=== PATIENT | male | born 1995 | race Two or more races ===

== ENCOUNTER 2021-07-19 12:16 | Inpatient (IN) | payer MEDICAID, OTHER ==
[~2021-07-19] VITALS: Ht 152.4 cm; Wt 60.4 kg
[2021-07-19] MEDS ORDERED: ACETAMINOPHEN 500 MG TAB PO ONE (12:45)
[2021-07-19] MEDS ORDERED: SODIUM CHLORIDE 0.9% 1,000 ML IV ONE (13:00)
[2021-07-19] MEDS ORDERED: VANCOMYCIN 1GM/250ML 250 ML IV ONE ×2 (13:00)
[2021-07-19] MEDS ORDERED: CEFEPIME 2 GM in SODIUM CHL 0.9% 50 ML IV ONE (13:00)
[2021-07-19] MEDS ORDERED: metroNIDAZOLE 500MG/100ML 100 ML IV ONE (13:30)
[2021-07-19 13:43] LABS: Basophils # (auto) 0.1 10 ^3/uL (0-0.2); Neutrophils # (auto) 12.1 10 ^3/uL (1.6-8.6); White Blood Cell 14.5 10^3/uL (4.4-10.8)
[2021-07-19 13:44] LABS: Basophils % (auto) 0.4 % (0.0-2.0); Eosinophils # (auto) 0 10 ^3/uL (0-0.8); Eosinophils % (auto) 0.3 % (0.0-7.0); Hematocrit 27.5 % (41.0-53.0); Hemoglobin 8.9 g/dL (13.5-17.5); Lymphocytes # (auto) 1.6 10 ^3/uL (0.4-5.4); Mean Corpuscular Hemoglobin 24.9 pg (28.0-32.0); Mean Corpuscular Hgb Conc. 32.4 g/dL (32.0-36.0); Mean Corpuscular Volume 76.7 fL (80.0-100.0); Monocytes # (auto) 0.7 10 ^3/uL (0-1.3); Monocytes % (auto) 5.1 % (0.0-12.0); Neutrophils % (auto) 83.2 % (37.0-80.0); Nucleated Red Blood Cells % 0.1 %; Red Blood Cells 3.59 10^6/uL (4.5-5.90); Red Cell Distribution Width 16.2 % (11.8-14.3)
[2021-07-19 14:00] LABS: BUN/Creatinine Ratio 19.2; Calcium 8.5 mg/dL (8.5-10.1)
[2021-07-19 14:03] LABS: Lactic Acid w/Reflex 2.1 mmol/L (0.4-2.0)
[2021-07-19] MEDS ORDERED: SODIUM CHLORIDE 0.9% 2,000 ML IV ONE (15:00)
[2021-07-19] MEDS: SODIUM CHLORIDE 0.9% 1,000 ML IV ONE ×2 (17:59→18:14)
[2021-07-19] MEDS ORDERED: HYDROcodone-ACET 5/325MG TAB PO PRN (18:30)
[2021-07-19] MEDS ORDERED: ONDANSETRON HCL 4 MG/2 ML VIAL IV PRN (18:30)
[2021-07-19] MEDS ORDERED: ACETAMINOPHEN 325 MG TAB PO PRN (18:30)
[2021-07-19] MEDS ORDERED: NITROGLYCERIN 0.4 MG SL TAB SL PRN (18:30)
[2021-07-19] MEDS ORDERED: MORPHINE SULFATE 4 MG/ML SYR/VIAL IV PRN (18:30)
[2021-07-19] MEDS ORDERED: VANCOMYCIN PER PHARMACY 0 MG IV SCH (18:30)
[2021-07-19] MEDS ORDERED: MORPHINE SULFATE INJECTION 2 MG/ML SYRG IV PRN (18:30)
[2021-07-19] MEDS: SODIUM CHLORIDE 0.9% 1,000 ML IV SCH (18:46)
[2021-07-19] MEDS ORDERED: CALCIUM CARB 500 MG CHEW TAB PO PRN (21:45)
[2021-07-19 22:00] VITALS: BP 112/73
[2021-07-19] MEDS: FAMOTIDINE 20 MG TAB PO SCH (22:54)
[2021-07-19 23:00] VITALS: BP 112/73
[2021-07-20] MEDS: PIPERACILLIN-TAZOB 3.375GM 100 ML IV SCH ×5 (00:15→23:45)
[2021-07-20] MEDS: SODIUM CHLORIDE 0.9% 1,000 ML IV SCH ×4 (01:10→21:46)
[2021-07-20] MEDS ORDERED: VANCOMYCIN 1GM/250ML 250 ML IV SCH (02:00)
[2021-07-20 05:00] VITALS: BP 100/47
[2021-07-20 06:15] LABS: Eosinophils # (auto) 0.1 10 ^3/uL (0-0.8); Monocytes # (auto) 0.9 10 ^3/uL (0-1.3); Nucleated Red Blood Cells % 0.1 %
[2021-07-20 06:18] LABS: Basophils # (auto) 0 10 ^3/uL (0-0.2); Basophils % (auto) 0.4 % (0.0-2.0); Eosinophils % (auto) 1.1 % (0.0-7.0); Hemoglobin 7.8 g/dL (13.5-17.5); Lymphocytes # (auto) 1.8 10 ^3/uL (0.4-5.4); Lymphocytes % (auto) 18.1 % (10.0-50.0); Mean Corpuscular Hemoglobin 25.1 pg (28.0-32.0); Mean Corpuscular Hgb Conc. 32.6 g/dL (32.0-36.0); Mean Corpuscular Volume 76.8 fL (80.0-100.0); Monocytes % (auto) 9.2 % (0.0-12.0); Neutrophils # (auto) 7.2 10 ^3/uL (1.6-8.6); Neutrophils % (auto) 71.2 % (37.0-80.0); Red Blood Cells 3.12 10^6/uL (4.5-5.90); Red Cell Distribution Width 16.1 % (11.8-14.3); White Blood Cell 10.1 10^3/uL (4.4-10.8)
[2021-07-20 06:31] LABS: Potassium 3.4 mmol/L (3.5-5.1)
[2021-07-20 06:36] LABS: Albumin 1.8 g/dL (3.4-5.0); BUN/Creatinine Ratio 8.6; Bilirubin, Total 0.4 mg/dL (0.2-1.0); Calcium 7.9 mg/dL (8.5-10.1); Total Protein 6.2 g/dL (6.4-8.2)
[2021-07-20 09:02] VITALS: BP 116/47
[2021-07-20] MEDS: ENOXAPARIN SOD 40 MG/0.4 ML SYRINGE SC SCH (09:45)
[2021-07-20] MEDS: FAMOTIDINE 20 MG TAB PO SCH ×2 (09:45→21:40)
[2021-07-20] MEDS ORDERED: VANCOMYCIN PER PHARMACY 0 MG IV SCH (12:00)
[2021-07-20 12:47] VITALS: BP 98/53
[2021-07-20] MEDS ORDERED: IOHEXOL 300 MG/ML 100ML BOTTLE IJ ONE (14:37)
[2021-07-20] MEDS: VANCOMYCIN 1GM/250ML 250 ML IV SCH (15:29)
[2021-07-20 17:00] VITALS: BP 94/60
[2021-07-20 22:00] VITALS: BP 93/55
[2021-07-21] MEDS: VANCOMYCIN 1GM/250ML 250 ML IV SCH ×3 (02:06→22:32)
[2021-07-21 05:00] VITALS: BP 101/59
[2021-07-21] MEDS: PIPERACILLIN-TAZOB 3.375GM 100 ML IV SCH ×3 (06:25→18:33)
[2021-07-21] MEDS: SODIUM CHLORIDE 0.9% 1,000 ML IV SCH ×4 (06:30→23:50)
[2021-07-21 08:51] VITALS: BP 103/50
[2021-07-21] MEDS: ENOXAPARIN SOD 40 MG/0.4 ML SYRINGE SC SCH (09:11)
[2021-07-21] MEDS: FAMOTIDINE 20 MG TAB PO SCH ×2 (09:11→22:32)
[2021-07-21 12:24] VITALS: BP 103/59
[2021-07-21 16:34] VITALS: BP 115/62
[2021-07-21] MEDS: Juven Fruit Punch Powder PACKET 28.8gm PO SCH (18:32)
[2021-07-21 22:00] VITALS: BP 107/65
[2021-07-22] MEDS: PIPERACILLIN-TAZOB 3.375GM 100 ML IV SCH ×4 (01:13→18:41)
[2021-07-22 05:00] VITALS: BP 101/53
[2021-07-22 06:23] LABS: Basophils # (auto) 0.1 10 ^3/uL (0-0.2); Basophils % (auto) 0.7 % (0.0-2.0); Eosinophils # (auto) 0.2 10 ^3/uL (0-0.8); Eosinophils % (auto) 2.7 % (0.0-7.0); Hemoglobin 7.5 g/dL (13.5-17.5); Monocytes # (auto) 0.8 10 ^3/uL (0-1.3); Nucleated Red Blood Cells % 0.1 %
[2021-07-22 06:25] LABS: Hematocrit 22.4 % (41.0-53.0); Lymphocytes # (auto) 1.7 10 ^3/uL (0.4-5.4); Lymphocytes % (auto) 23.4 % (10.0-50.0); Mean Corpuscular Hemoglobin 25.8 pg (28.0-32.0); Mean Corpuscular Hgb Conc. 33.5 g/dL (32.0-36.0); Mean Corpuscular Volume 76.9 fL (80.0-100.0); Monocytes % (auto) 11.4 % (0.0-12.0); Neutrophils # (auto) 4.6 10 ^3/uL (1.6-8.6); Neutrophils % (auto) 61.8 % (37.0-80.0); Red Blood Cells 2.92 10^6/uL (4.5-5.90); Red Cell Distribution Width 16.5 % (11.8-14.3); White Blood Cell 7.4 10^3/uL (4.4-10.8)
[2021-07-22] MEDS: SODIUM CHLORIDE 0.9% 1,000 ML IV SCH ×3 (06:30→21:37)
[2021-07-22 06:42] LABS: Calcium 8.2 mg/dL (8.5-10.1); Potassium 3.8 mmol/L (3.5-5.1)
[2021-07-22 06:46] LABS: Magnesium 2.4 mg/dL (1.6-2.6)
[2021-07-22 08:00] VITALS: BP 113/63
[2021-07-22] MEDS: VANCOMYCIN 1GM/250ML 250 ML IV SCH (08:00)
[2021-07-22] MEDS: FAMOTIDINE 20 MG TAB PO SCH ×2 (09:07→21:38)
[2021-07-22] MEDS: Juven Fruit Punch Powder PACKET 28.8gm PO SCH ×2 (09:08→18:41)
[2021-07-22] MEDS: ENOXAPARIN SOD 40 MG/0.4 ML SYRINGE SC SCH (09:08)
[2021-07-22 12:00] VITALS: BP 104/60
[2021-07-22 16:00] VITALS: BP_SYST 108; BP_SYST 119; BP_DIAS 60; BP_DIAS 68
[2021-07-22] MEDS ORDERED: VANCOMYCIN 1GM/250ML 250 ML IV ONE (20:00)
[2021-07-22 22:00] VITALS: BP 110/58
[2021-07-23] MEDS: PIPERACILLIN-TAZOB 3.375GM 100 ML IV SCH ×4 (01:11→18:38)
[2021-07-23] MEDS: SODIUM CHLORIDE 0.9% 1,000 ML IV SCH ×4 (02:30→22:30)
[2021-07-23 05:00] VITALS: BP 127/60
[2021-07-23 08:47] VITALS: BP_SYST 127; BP_SYST 93; BP_DIAS 51; BP_DIAS 60
[2021-07-23] MEDS: FAMOTIDINE 20 MG TAB PO SCH ×2 (09:18→21:18)
[2021-07-23] MEDS: Juven Fruit Punch Powder PACKET 28.8gm PO SCH ×2 (09:18→18:37)
[2021-07-23] MEDS: ENOXAPARIN SOD 40 MG/0.4 ML SYRINGE SC SCH (09:18)
[2021-07-23 13:00] VITALS: BP 93/52
[2021-07-23 17:00] VITALS: BP 104/62
[2021-07-23 22:00] VITALS: BP 120/65
[2021-07-24] MEDS: PIPERACILLIN-TAZOB 3.375GM 100 ML IV SCH ×3 (00:30→12:53)
[2021-07-24 05:00] VITALS: BP 102/59
[2021-07-24] MEDS: SODIUM CHLORIDE 0.9% 1,000 ML IV SCH ×2 (05:18→11:50)
[2021-07-24 08:10] VITALS: BP 101/60
[2021-07-24] MEDS: Juven Fruit Punch Powder PACKET 28.8gm PO SCH (08:52)
[2021-07-24] MEDS: FAMOTIDINE 20 MG TAB PO SCH (10:17)
[2021-07-24] MEDS: ENOXAPARIN SOD 40 MG/0.4 ML SYRINGE SC SCH (10:17)
[2021-07-24 12:00] VITALS: BP 111/60
[2021-07-24 17:10] VITALS: BP 99/61
[2021-07-24] MEDS ORDERED: DAKINS HALF STR 0.25% (NaHypochlorite) 473 ML TOPICAL SOL TOP ONE (17:15)
== END 2021-07-24 17:30 | disposition left against medical advice (07) | DRG 720 ==
LOC: ER 12:16 → TELE 18:28 → TELE-EAST 20:25
PROVIDERS: ADMIT Internal Medicine; ATTEND Internal Medicine
PROC: 05HC33Z Insertion of Infusion Device into Left Basilic Vein, Percutaneous Approach (ICD-10-PCS; principal; 2021-07-23)
PROC: B54NZZA Ultrasonography of Left Upper Extremity Veins, Guidance (ICD-10-PCS; 2021-07-23)
DX: A41.50 Gram-negative sepsis, unspecified (principal); L89.154 Pressure ulcer of sacral region, stage 4; E44.1 Mild protein-calorie malnutrition; G82.20 Paraplegia, unspecified; L89.329 Pressure ulcer of left buttock, unspecified stage; Z20.822 Contact with and (suspected) exposure to COVID-19; Z53.29 Procedure and treatment not carried out because of patient's decision for other reasons; Z82.62 Family history of osteoporosis; Z68.35 Body mass index [BMI] 35.0-35.9, adult
CPT/HCPCS: 36415; 74177; 80048; 80053; 80202; 82565; 83605; 83735; 85025; 87040; 87076; 96365; 96366; 96367; 96375; G0378; J2405; J2543; J3490

== ENCOUNTER 2021-10-04 | Inpatient (IN) | payer MEDICAID ==
[2021-10-04] VITALS (15 sets, daily range): BP systolic 100–120; BP diastolic 31–74
[~2021-10-04] VITALS: Ht 152.4 cm; Wt 66.5 kg
[2021-10-04] MEDS ORDERED: SODIUM CHLORIDE 0.9% 500 ML IV STA (00:29)
[2021-10-04] MEDS ORDERED: SODIUM CHLORIDE 0.9% 500 ML IV ONE (00:30)
[2021-10-04 01:21] LABS: Basophils # (auto) 0.1 10 ^3/uL (0-0.2); Eosinophils # (auto) 0 10 ^3/uL (0-0.8); Eosinophils % (auto) 0.3 % (0.0-7.0); Lymphocytes # (auto) 2.7 10 ^3/uL (0.4-5.4); Neutrophils # (auto) 9.3 10 ^3/uL (1.6-8.6)
[2021-10-04 01:23] LABS: Basophils % (auto) 0.8 % (0.0-2.0); Hematocrit 20.9 % (41.0-53.0); Lymphocytes % (auto) 20.2 % (10.0-50.0); Mean Corpuscular Hgb Conc. 32.1 g/dL (32.0-36.0); Mean Corpuscular Volume 74.9 fL (80.0-100.0); Monocytes # (auto) 1.1 10 ^3/uL (0-1.3); Monocytes % (auto) 8.6 % (0.0-12.0); Neutrophils % (auto) 70.1 % (37.0-80.0); Nucleated Red Blood Cells % 0.1 %; Red Blood Cells 2.79 10^6/uL (4.5-5.90); Red Cell Distribution Width 17.5 % (11.8-14.3); White Blood Cell 13.3 10^3/uL (4.4-10.8)
[2021-10-04 02:12] LABS: Hemoglobin 6.7 g/dL (13.5-17.5)
[2021-10-04 02:48] LABS: Albumin 2.1 g/dL (3.4-5.0); BUN/Creatinine Ratio 10.4; Calcium 8.1 mg/dL (8.5-10.1)
[2021-10-04 02:51] LABS: Bilirubin, Total 0.5 mg/dL (0.2-1.0); Total Protein 6.9 g/dL (6.4-8.2)
[2021-10-04 03:30] LABS: Lactic Acid w/Reflex 2.3 mmol/L (0.4-2.0)
[2021-10-04] MEDS ORDERED: DOCUSATE SOD 100 MG CAP PO PRN (06:30)
[2021-10-04] MEDS ORDERED: HYDROcodone-ACET 5/325MG TAB PO PRN (06:30)
[2021-10-04] MEDS ORDERED: ONDANSETRON HCL 4 MG/2 ML VIAL IV PRN (06:30)
[2021-10-04] MEDS ORDERED: SODIUM CHLORIDE 0.9% 1,000 ML IV SCH ×2 (06:30→07:15)
[2021-10-04] MEDS ORDERED: NITROGLYCERIN 0.4 MG SL TAB SL PRN (07:15)
[2021-10-04] MEDS ORDERED: MORPHINE SULFATE INJ 2 MG/ml SYRG IV PRN ×2 (07:15)
[2021-10-04] MEDS ORDERED: ACETAMINOPHEN 325 MG TAB PO ONE (08:00)
[2021-10-04] MEDS: ENOXAPARIN SOD 40 MG/0.4 ML SYRINGE SC SCH (08:26)
[2021-10-04] MEDS: POTASSIUM CHL 20MEQ/100ML 100 ML IV SCH ×2 (08:30→12:16)
[2021-10-04] MEDS: CLINDAMYCIN 900MG IV 50 ML IV SCH ×2 (12:16→21:32)
[2021-10-04] MEDS: levoFLOXacin 500MG 100 ML IV SCH (12:17)
[2021-10-04 13:03] LABS: Eosinophils # (auto) 0.1 10 ^3/uL (0-0.8); Mean Corpuscular Hgb Conc. 33.1 g/dL (32.0-36.0); Monocytes # (auto) 0.8 10 ^3/uL (0-1.3); Monocytes % (auto) 7.4 % (0.0-12.0)
[2021-10-04 13:05] LABS: Basophils # (auto) 0.1 10 ^3/uL (0-0.2); Basophils % (auto) 0.7 % (0.0-2.0); Eosinophils % (auto) 1.2 % (0.0-7.0); Hematocrit 27.2 % (41.0-53.0); Lymphocytes # (auto) 2.1 10 ^3/uL (0.4-5.4); Lymphocytes % (auto) 20.2 % (10.0-50.0); Mean Corpuscular Volume 78.6 fL (80.0-100.0); Neutrophils # (auto) 7.5 10 ^3/uL (1.6-8.6); Neutrophils % (auto) 70.5 % (37.0-80.0); Nucleated Red Blood Cells % 0.5 %; Red Blood Cells 3.46 10^6/uL (4.5-5.90); Red Cell Distribution Width 17.1 % (11.8-14.3); White Blood Cell 10.6 10^3/uL (4.4-10.8)
[2021-10-04] MEDS ORDERED: POTASSIUM EFFERVESENT TAB 25 MEQ PO ONE (13:15)
[2021-10-04 13:26] LABS: Albumin 1.9 g/dL (3.4-5.0); BUN/Creatinine Ratio 10.9; Calcium 7.8 mg/dL (8.5-10.1)
[2021-10-04 13:32] LABS: Bilirubin, Total 0.7 mg/dL (0.2-1.0); Total Protein 6.4 g/dL (6.4-8.2)
[2021-10-04 13:55] LABS: Urine Bacteria MOD /hpf (None Seen); Urine Blood Negative /uL (Negative); Urine Mucus FEW (None Seen); Urine Specific Gravity 1.013 (1.001-1.035); Urine WBC 5 /hpf (0 - 3)
[2021-10-04] MEDS: ACETAMINOPHEN 325 MG TAB PO PRN (21:56)
[2021-10-05 05:00] VITALS: BP 112/73
[2021-10-05] MEDS: CLINDAMYCIN 900MG IV 50 ML IV SCH (05:42)
[2021-10-05 07:03] LABS: Neutrophils # (auto) 6.5 10 ^3/uL (1.6-8.6)
[2021-10-05 07:05] LABS: Basophils # (auto) 0 10 ^3/uL (0-0.2); Basophils % (auto) 0.5 % (0.0-2.0); Eosinophils # (auto) 0.2 10 ^3/uL (0-0.8); Eosinophils % (auto) 1.7 % (0.0-7.0); Hematocrit 28.4 % (41.0-53.0); Hemoglobin 9.3 g/dL (13.5-17.5); Lymphocytes % (auto) 21.4 % (10.0-50.0); Mean Corpuscular Hemoglobin 25.7 pg (28.0-32.0); Mean Corpuscular Hgb Conc. 32.9 g/dL (32.0-36.0); Mean Corpuscular Volume 78.2 fL (80.0-100.0); Monocytes # (auto) 0.7 10 ^3/uL (0-1.3); Monocytes % (auto) 7.9 % (0.0-12.0); Neutrophils % (auto) 68.5 % (37.0-80.0); Nucleated Red Blood Cells % 0.2 %; Red Blood Cells 3.63 10^6/uL (4.5-5.90); White Blood Cell 9.4 10^3/uL (4.4-10.8)
[2021-10-05 07:40] LABS: Albumin 1.8 g/dL (3.4-5.0); Calcium 8.1 mg/dL (8.5-10.1); Potassium 3.9 mmol/L (3.5-5.1)
[2021-10-05 07:42] LABS: BUN/Creatinine Ratio 9.4
[2021-10-05 07:49] LABS: Bilirubin, Total 0.5 mg/dL (0.2-1.0); Total Protein 6.3 g/dL (6.4-8.2)
[2021-10-05 08:00] VITALS: BP 109/71
[2021-10-05] MEDS: ENOXAPARIN SOD 40 MG/0.4 ML SYRINGE SC SCH (09:48)
[2021-10-05] MEDS: levoFLOXacin 500MG 100 ML IV SCH (09:48)
[2021-10-05] MEDS: ACETAMINOPHEN 325 MG TAB PO PRN (09:59)
[2021-10-05 12:00] VITALS: BP 102/65
[2021-10-05] MEDS ORDERED: VANCOMYCIN PER PHARMACY 0 MG IV SCH (12:00)
[2021-10-05] MEDS: cefTRIAXone 1GM/50ML D5W 50 ML IV SCH (12:13)
[2021-10-05] MEDS ORDERED: VANCOMYCIN 1GM/250ML 250 ML IV ONE (15:30)
[2021-10-05 16:00] VITALS: BP 105/55
[2021-10-05 22:00] VITALS: BP 119/75
[2021-10-05] MEDS: VANCOMYCIN 1GM/250ML 250 ML IV SCH (23:31)
[2021-10-06 05:00] VITALS: BP 108/56
[2021-10-06] MEDS: ACETAMINOPHEN 325 MG TAB PO PRN ×2 (06:15→21:40)
[2021-10-06 06:44] LABS: Albumin 1.8 g/dL (3.4-5.0); BUN/Creatinine Ratio 7.8; Phosphorus 2.9 mg/dL (2.5-4.90); Potassium 4.1 mmol/L (3.5-5.1)
[2021-10-06] MEDS: VANCOMYCIN 1GM/250ML 250 ML IV SCH (08:02)
[2021-10-06 09:00] VITALS: BP 111/51
[2021-10-06] MEDS: ENOXAPARIN SOD 40 MG/0.4 ML SYRINGE SC SCH (11:20)
[2021-10-06] MEDS: cefTRIAXone 1GM/50ML D5W 50 ML IV SCH (11:20)
[2021-10-06] MEDS ORDERED: IOHEXOL 300 MG/ML 100ML BOTTLE IJ ONE (12:35)
[2021-10-06 13:00] VITALS: BP 100/47
[2021-10-06] MEDS: AMPICILLIN & SULBACTAM SODIUM 3 GM in SODIUM CHL 0.9% 100 ML IV SCH ×2 (16:13→20:34)
[2021-10-06 16:28] LABS: INR 1.07 (0.9-1.15); Partial Thromboplastin Time 27.5 sec (23.6-33.0)
[2021-10-06 17:00] VITALS: BP 113/64
[2021-10-06 22:00] VITALS: BP 119/70
[2021-10-07] MEDS: AMPICILLIN & SULBACTAM SODIUM 3 GM in SODIUM CHL 0.9% 100 ML IV SCH ×4 (02:28→22:54)
[2021-10-07 05:00] VITALS: BP 118/75
[2021-10-07 09:00] VITALS: BP 106/63
[2021-10-07] MEDS: ENOXAPARIN SOD 40 MG/0.4 ML SYRINGE SC SCH (09:13)
[2021-10-07 13:00] VITALS: BP 122/67
[2021-10-07] MEDS: ACETAMINOPHEN 325 MG TAB PO PRN (16:48)
[2021-10-07 17:00] VITALS: BP 109/64
[2021-10-07] MEDS ORDERED: LIDOCAINE 1% (LOCAL ANESTH.) PF 5ml SDV ID ONE (17:00)
[2021-10-07 22:00] VITALS: BP 97/60
[2021-10-08] MEDS: SODIUM CHLOR 0.9% PF (SALINE LOCK) 10ML VIAL/SYR IV SCH ×3 (01:10→22:34)
[2021-10-08] MEDS: AMPICILLIN & SULBACTAM SODIUM 3 GM in SODIUM CHL 0.9% 100 ML IV SCH ×4 (03:23→21:30)
[2021-10-08 05:00] VITALS: BP 114/62
[2021-10-08 09:00] VITALS: BP 99/50
[2021-10-08] MEDS: ENOXAPARIN SOD 40 MG/0.4 ML SYRINGE SC SCH (09:05)
[2021-10-08 12:50] VITALS: BP 109/57
[2021-10-08 16:54] VITALS: BP 104/57
[2021-10-08] MEDS: FAMOTIDINE 20 MG TAB PO SCH (17:52)
[2021-10-08 22:00] VITALS: BP 117/70
[2021-10-09] MEDS: AMPICILLIN & SULBACTAM SODIUM 3 GM in SODIUM CHL 0.9% 100 ML IV SCH ×4 (03:00→21:15)
[2021-10-09 04:45] VITALS: BP 113/48
[2021-10-09 08:00] VITALS: BP 100/50
[2021-10-09] MEDS: SODIUM CHLOR 0.9% PF (SALINE LOCK) 10ML VIAL/SYR IV SCH ×2 (09:26→21:15)
[2021-10-09] MEDS: FAMOTIDINE 20 MG TAB PO SCH ×2 (09:27→21:16)
[2021-10-09] MEDS: ENOXAPARIN SOD 40 MG/0.4 ML SYRINGE SC SCH (09:27)
[2021-10-09] MEDS ORDERED: ceFAZolin 1GM VL ONE (10:24)
[2021-10-09] MEDS ORDERED: LIDOCAINE 1%-Mpf/Epinephrine 1:200,000 ONE (10:24)
[2021-10-09] MEDS ORDERED: BUPIVACAINE 0.25% INJ 50ML VIAL ONE (10:24)
[2021-10-09] MEDS ORDERED: ONDANSETRON HCL 4 MG/2 ML VIAL IV PRN (10:45)
[2021-10-09] MEDS ORDERED: HYDROmorphone HCL 2 MG/ML VL/or syr IV PRN (10:45)
[2021-10-09 12:00] VITALS: BP 126/76
[2021-10-09 16:00] VITALS: BP 116/64
[2021-10-09 22:00] VITALS: BP 103/62
[2021-10-10] MEDS: AMPICILLIN & SULBACTAM SODIUM 3 GM in SODIUM CHL 0.9% 100 ML IV SCH ×4 (03:16→22:20)
[2021-10-10 05:00] VITALS: BP 109/72
[2021-10-10 07:30] VITALS: BP 112/69
[2021-10-10 09:00] VITALS: BP 112/69
[2021-10-10] MEDS: SODIUM CHLOR 0.9% PF (SALINE LOCK) 10ML VIAL/SYR IV SCH ×2 (09:23→22:19)
[2021-10-10] MEDS: FAMOTIDINE 20 MG TAB PO SCH ×2 (09:23→22:19)
[2021-10-10] MEDS: ENOXAPARIN SOD 40 MG/0.4 ML SYRINGE SC SCH (09:24)
[2021-10-10 13:00] VITALS: BP 121/70
[2021-10-10 17:00] VITALS: BP 110/72
[2021-10-10 22:00] VITALS: BP 119/69
[2021-10-11] MEDS: AMPICILLIN & SULBACTAM SODIUM 3 GM in SODIUM CHL 0.9% 100 ML IV SCH ×4 (03:14→21:52)
[2021-10-11 05:00] VITALS: BP 107/75
[2021-10-11 07:19] LABS: Basophils # (auto) 0 10 ^3/uL (0-0.2); Basophils % (auto) 0.5 % (0.0-2.0); Eosinophils # (auto) 0.2 10 ^3/uL (0-0.8); Eosinophils % (auto) 3.4 % (0.0-7.0); Hematocrit 30.9 % (41.0-53.0); Hemoglobin 9.9 g/dL (13.5-17.5); Lymphocytes # (auto) 1.7 10 ^3/uL (0.4-5.4); Lymphocytes % (auto) 32.6 % (10.0-50.0); Mean Corpuscular Hemoglobin 25.5 pg (28.0-32.0); Mean Corpuscular Hgb Conc. 31.9 g/dL (32.0-36.0); Mean Corpuscular Volume 79.9 fL (80.0-100.0); Monocytes # (auto) 0.4 10 ^3/uL (0-1.3); Monocytes % (auto) 7.9 % (0.0-12.0); Neutrophils % (auto) 55.6 % (37.0-80.0); Nucleated Red Blood Cells % 0.1 %; Red Blood Cells 3.86 10^6/uL (4.5-5.90); Red Cell Distribution Width 18.1 % (11.8-14.3); White Blood Cell 5.3 10^3/uL (4.4-10.8)
[2021-10-11 07:36] LABS: BUN/Creatinine Ratio 16.1; Magnesium 2.3 mg/dL (1.6-2.6); Potassium 4.2 mmol/L (3.5-5.1)
[2021-10-11 08:00] VITALS: BP 117/77
[2021-10-11 09:00] VITALS: BP 117/77
[2021-10-11] MEDS: ENOXAPARIN SOD 40 MG/0.4 ML SYRINGE SC SCH (09:27)
[2021-10-11] MEDS: SODIUM CHLOR 0.9% PF (SALINE LOCK) 10ML VIAL/SYR IV SCH ×2 (09:27→21:52)
[2021-10-11] MEDS: FAMOTIDINE 20 MG TAB PO SCH ×2 (09:27→21:52)
[2021-10-11 13:00] VITALS: BP 109/73
[2021-10-11 17:00] VITALS: BP 109/68
[2021-10-11 22:00] VITALS: BP 94/64
[2021-10-12] MEDS: AMPICILLIN & SULBACTAM SODIUM 3 GM in SODIUM CHL 0.9% 100 ML IV SCH ×3 (03:36→17:26)
[2021-10-12 05:00] VITALS: BP 118/69
[2021-10-12 08:00] VITALS: BP 106/71
[2021-10-12] MEDS: ENOXAPARIN SOD 40 MG/0.4 ML SYRINGE SC SCH (08:59)
[2021-10-12] MEDS: SODIUM CHLOR 0.9% PF (SALINE LOCK) 10ML VIAL/SYR IV SCH (09:12)
[2021-10-12] MEDS: FAMOTIDINE 20 MG TAB PO SCH (09:12)
[2021-10-12 09:50] LABS: INR 0.95 (0.9-1.15); Partial Thromboplastin Time 28.5 sec (23.6-33.0)
[2021-10-12 12:00] VITALS: BP 110/65
[2021-10-12] MEDS ORDERED: IOHEXOL 300 MG/ML 100ML BOTTLE IJ ONE (18:04)
[2021-10-12 20:00] VITALS: BP 110/65
== END 2021-10-12 19:10 | disposition short-term general hospital (02) | DRG 720 ==
LOC: ER → OVERFLOW 07:05 → TELE-EAST 16:30
PROVIDERS: ADMIT Hospitalist; ATTEND Hospitalist
PROC: 30233N1 Transfusion of Nonautologous Red Blood Cells into Peripheral Vein, Percutaneous Approach (ICD-10-PCS; principal; 2021-10-04)
PROC: 05HA33Z Insertion of Infusion Device into Left Brachial Vein, Percutaneous Approach (ICD-10-PCS; 2021-10-07)
PROC: B54NZZA Ultrasonography of Left Upper Extremity Veins, Guidance (ICD-10-PCS; 2021-10-07)
DX: A41.9 Sepsis, unspecified organism (principal); J12.82 Pneumonia due to coronavirus disease 2019; L89.323 Pressure ulcer of left buttock, stage 3; L89.224 Pressure ulcer of left hip, stage 4; U07.1 COVID-19; G82.20 Paraplegia, unspecified; E88.09 Other disorders of plasma-protein metabolism, not elsewhere classified; L03.116 Cellulitis of left lower limb; D64.9 Anemia, unspecified; D75.838 Other thrombocytosis; L03.317 Cellulitis of buttock; M86.8X8 Other osteomyelitis, other site; L97.529 Non-pressure chronic ulcer of other part of left foot with unspecified severity; L02.31 Cutaneous abscess of buttock; N40.0 Benign prostatic hyperplasia without lower urinary tract symptoms; F12.90 Cannabis use, unspecified, uncomplicated; L97.319 Non-pressure chronic ulcer of right ankle with unspecified severity; M81.0 Age-related osteoporosis without current pathological fracture; Z82.62 Family history of osteoporosis; L89.312 Pressure ulcer of right buttock, stage 2; L89.512 Pressure ulcer of right ankle, stage 2
CPT/HCPCS: 36415; 36430; 36569; 71045; 72193; 76881; 80048; 80053; 80069; 81001; 82270; 83605; 83735; 84132; 85025; 85610; 85730; 86850; 86900; 86901; 86920; 87040; 87077; 87205; 93005; 96360; 96361; 96372; G0378; J0690; J0696; J1956; J2405; J3480; J3490